=== PATIENT | male | born 1995 | race Caucasian/White ===

== ENCOUNTER 2023-08-16 00:54 | Emergency (ER) | payer OTHER ==
[~2023-08-16] VITALS: Ht 193 cm; Wt 104.3 kg
[2023-08-16] MEDS ORDERED: CEPH500 PO (02:16)
[2023-08-16 02:40] VITALS: BP 136/80
== END 2023-08-16 02:45 | disposition home or self-care (01) ==
LOC: ER 00:54
DX: S96.921A Laceration of unspecified muscle and tendon at ankle and foot level, right foot, initial encounter (principal); W22.8XXA Striking against or struck by other objects, initial encounter
CPT/HCPCS: 12004; 73620; 99283-25; A9270